=== PATIENT | male | born 1970 | race Caucasian/White ===

== ENCOUNTER 2023-02-05 04:23 | Emergency (ER) | payer OTHER ==
[~2023-02-05] VITALS: Ht 177.8 cm; Wt 89.8 kg
[2023-02-05] MEDS ORDERED: LORAZEPAM 1 MG TABLET ONE (04:43)
[2023-02-05] MEDS ORDERED: LORAZEPAM 1 MG TABLET PO ONE (05:00)
[2023-02-05 06:01] VITALS: BP 149/70; TEMP 98.1; O2SAT 99
== END 2023-02-05 06:02 | disposition home or self-care (01) ==
LOC: ER 04:24
DX: F41.9 Anxiety disorder, unspecified (principal); I10 Essential (primary) hypertension; E11.9 Type 2 diabetes mellitus without complications
CPT/HCPCS: 82962-TC